=== PATIENT | female | born 1950 | race Caucasian/White ===

== ENCOUNTER 2020-03-01 17:46 | Emergency (ER) | payer MEDICARE, OTHER ==
[~2020-03-01] VITALS: Ht 170.2 cm; Wt 53.6 kg
[~2020-03-01 17:46] MED LIST: AMLO10TA4 PO; HYDR-2145 PO
--- NOTE | 2020-03-01 18:11 | PHYS DOC ---
Past History Past Medical History: Seizure (NADIA ANN APRN) Past Surgical History: Hip Replacement, Tubal ligation (NADIA ANN APRN) Alcohol Use: None (NADIA ANN APRN) General Adult EDM: Chief Complaint: HYPERTENSION HPI: HPI: Patient is a 69-year-old female who presents with high blood pressure. Home health was at the patient's house today they took her blood pressure and told her it was 193/101. Patient was instructed to come to the ER to be checked. Patient denies having a history of hypertension But admits she has not seen a primary care doctor in 7 years.Patient is asymptomatic. Patient denies shortness of breath, dizziness, chest pain. (NADIA ANN APRN) Review of Systems: Review of Systems: Constitutional: Denies fever or chills Eyes: Denies change in visual acuity HENT: Denies nasal congestion or sore throat Respiratory: Denies cough or shortness of breath Cardiovascular: Denies chest pain or edema GI: Denies abdominal pain, nausea, vomiting, bloody stools or diarrhea : Denies dysuria Musculoskeletal: Denies back pain or joint pain Integument: Denies rash Neurologic: Denies headache, focal weakness or sensory changes Endocrine: Denies polyuria or polydipsia Lymphatic: Denies swollen glands Psychiatric: Denies depression or anxiety (NADIA ANN APRN) Allergies: Allergies: Allergies Coded Allergies Type Severity Reaction Last Updated Verified chlorzoxazone Allergy Severe Shortness of Air 08/16/13 Yes influenza virus vaccine, specific Allergy Severe Swelling 08/16/13 Yes (NADIA ANN APRN) Physical Exam: PE: Constitutional: Well developed, well nourished, no acute distress, non-toxic appearance. [] HENT: Normocephalic, atraumatic, bilateral external ears normal, oropharynx moist, no oral exudates, nose normal. [] Eyes: PERRLA, EOMI, conjunctiva normal, no discharge. [] Neck: Normal range of motion, no tenderness, supple, no stridor. [] Cardiovascular:Heart rate regular rhythm, no murmur [] Lungs & Thorax: Bilateral breath sounds clear to auscultation [] Abdomen: Bowel sounds normal, soft, no tenderness, no masses, no pulsatile masses. [] Skin: Warm, dry, no erythema, no rash. [] Back: No tenderness, no CVA tenderness. [] Extremities: No tenderness, no cyanosis, no clubbing, ROM intact, no edema. [] Neurologic: Alert and oriented X 3, normal motor function, normal sensory function, no focal deficits noted. [] Psychologic: Affect normal, judgement normal, mood normal. [] (NADIA ANN APRN) Current Patient Data: Vital Signs: Vital Signs Date Time Temp Pulse Resp B/P (MAP) Pulse Ox O2 Delivery O2 Flow Rate FiO2 03/01/20 17:59 97.0 132 16 195/102 (133) 97 Room Air (NADIA ANN APRN) EKG: EKG: Sinus Tachycardia, HR 108 BPM[] (NADIA ANN APRN) Radiology/Procedures: Radiology/Procedures: [] (NADIA ANN APRN) Heart Score: HEART Score for Chest Pain: HEART Score for Chest Pain Response (Comments) Value History Slighlty/Non-Suspicious 0 ECG Normal 0 Age > 65 2 Risk Factors 1 or 2 Risk Factors 1 Troponin < Normal Limit 0 Total 3 Risk Factors: Risk Factors: DM, Current or recent (<one month) smoker, HTN, HLP, family history of CAD, obesity. Risk Scores: Score 0 - 3: 2.5% MACE over next 6 weeks - Discharge Home Score 4 - 6: 20.3% MACE over next 6 weeks - Admit for Clinical Observation Score 7 - 10: 72.7% MACE over next 6 weeks - Early Invasive Strategies (NADIA ANN APRN) Course & Med Decision Making: Course & Med Decision Making Pertinent Labs and Imaging studies reviewed. (See chart for details) [] C 9-year-old female presents with high blood pressure. Home health was visiting with the patient today when they took her blood pressure is it was 193/101. Patient was instructed to come to the ER. Patient is asymptomatic. We will order EKG, chest x-ray. EKG shows sinus tach, heart rate 108 bpm. Chest x-ray is negative. Labs are all within normal limits. Trop. is negative. Heart score is 3. Patients HR now 88BPM. Will repeat EKG. Repeat EKG- Normal Sinus Rhythm. 1 nitro was given. Patient's blood pressure is now 148/81. Patient is still asymptomatic. Will DC to home. Referral for PCP given to patient. Patient instructed to make an appointment and follow-up with PCP to evaluate blood pressure. (NADIA ANN APRN) Course & Med Decision Making I oversaw care of patient while in ER. I discussed case with DONOR RELATIONS OFFICER. Asymptomatic HTN. Patient improved with ER intervention. Has good access to care with PCP for follow-up for likely RX HTN med. (CAREN DIAZ DO) Johnathanon Disclaimer: Marlin Disclaimer: This electronic medical record was generated, in whole or in part, using a voice recognition dictation system. (NADIA ANN APRN) Departure Departure: Impression: Primary Impression: Hypertension Qualified Codes: I10 - Essential (primary) hypertension Disposition: DC HOME SELF CARE/HOMELESS Condition: IMPROVED Referrals: PCP,NO (PCP) Patient Instructions: Hypertension Additional Instructions: FOLLOW UP WITH PCP. PCP LIST WITH DISCHARGE PAPERWORK. EMERGENCY DEPARTMENT GENERAL DISCHARGE INSTRUCTIONS Thank you for coming to [facility] (ED) today and trusting us with you care. We trust that you had a positivie experience in our Emergency Department. If you wish to speak to the department management, you may call the director at [phone]. YOUR FOLLOW UP INSTRUCTIONS ARE FOLLOWS: 1. Do you have a private Doctor? If you do not have a private doctor, please ask for a resource list of physicians or clinics that may be able to assist you with fol low up care. 2. The Emergency Physician has interpreted your x-rays. The X-Ray specialist will also review them. If there is a change in the findings, you will be notified in 48 hours when at all possible. 3. A lab test or culture has been done, your results will be reviewed and you will be notified if you need a change in treatment. ADDITIONAL INSTRUCTIONS AND INFORMATION: 1. Your care today has been supervised by a physician who is specially trained in emergency care. Many problems require more than one evaluation for a complete diagnosis and treatment. We recommend that you schedule your follow up appointment as r ecommended to ensure complete treatment of you illness or injury. If you are unable to obtain follow up care and continue to have a problem, or if your condition worsens, we recommend that you return to the ED. 2. We are not able to safely determine your condition over the phone nor are we able to give sound medical advice over the phone. For these safety reasons, if you call for medical advice we will ask you to come to the ED for further evaluation. 3. If you have any questions regarding these discharge instructions please call the ED at [phone]. SAFETY INFORMATION: In the interest of safety, wellness, and injury prevention; we encourage you to wear your sealbelt, if you smoke; quite smoking, and we encourage family to use a protective helmet for bicycling and other sporting events that present an increased risk for head injury. IF YOUR SYMPTOMS WORSEN OR NEW SYMPTOMS DEVELOP, OR YOU HAVE CONCERNS ABOUT YOUR CONDITION; OR IF YOUR CONDITION WORSENS WHILE YOU ARE WAITING FOR YOUR FOLLOW UP APPOINTMENT; EITHER CONTACT YOUR PRIMARY CARE DOCTOR, THE PHYSICIAN WHOSE NAME AND NUMBER YOU WERE GIVEN, OR RETURN TO THE ED IMMEDIATELY. NADIA ANN APRN Mar 01, 2020 18:11 CAREN DIAZ DO Mar 06, 2020 21:16
[2020-03-01] MEDS ORDERED: NITROGLYCERIN SUBLINGUAL 0.4 MG BOTTLE OF 25. SL PRN (18:15)
--- NOTE | 2020-03-01 18:22 | EKG ---
[address] [address] Test Date: 2020-03-01 Test Time: 18:02:44 Pat Name: DERIAN BROOKS Department: Room: Gender: F Oral Communication Instructor: ADILIA : 1950 Requested By: NADIA ANN Order Number: [id number] Reading MD: Patrick Pelayo Measurements Intervals [place] Rate: 108 P: 77 IA: 126 QRS: 60 QRSD: 80 T: 68 QT: 334 QTc: 451 Interpretive Statements SINUS TACHYCARDIA QRS(T) CONTOUR ABNORMALITY CONSISTENT WITH ANTEROSEPTAL INFARCT PROBABLY OLD ABNORMAL ECG RI6.02 No previous ECG available for comparison Electronically Signed On 03-07-2020 14:52:47 AUGER OPERATOR by Patrick Pelayo
[2020-03-01 19:05] LABS: BASO % 1 % (0-3); EOS % 1 % (0-3); HEMATOCRIT 43.2 % (36.0-47.0); HEMOGLOBIN 14.3 g/dL (12.0-15.5); LYMPH # 1.1 x10^3/uL (1.0-4.8); LYMPH % 17 % (24-48); MEAN CORPUSCULAR HEMOGLOBIN 33 pg (25-35); MEAN CORPUSCULAR HGB CONC 33 g/dL (31-37); MEAN CORPUSCULAR VOLUME 99 fL (79-100); MONO # 0.5 x10^3/uL (0.0-1.1); MONO % 8 % (0-9); NEUT % 74 % (31-73); PLATELET COUNT 211 x10^3/uL (140-400); RED BLOOD COUNT 4.37 x10^6/uL (3.50-5.40); RED CELL DISTRIBUTION WIDTH 15.6 % (11.5-14.5); WHITE BLOOD COUNT 6.7 x10^3/uL (4.0-11.0)
[2020-03-01 19:11] LABS: CALCIUM 9.8 mg/dL (8.5-10.1); CREATININE 0.8 mg/dL (0.6-1.0); GFR 71.3; POTASSIUM 4.2 mmol/L (3.5-5.1)
[2020-03-01 19:21] LABS: ALBUMIN 3.8 g/dL (3.4-5.0); ALBUMIN/GLOBULIN RATIO 1.3 (1.0-1.7); TOTAL BILIRUBIN 0.5 mg/dL (0.2-1.0); TOTAL PROTEIN 6.8 g/dL (6.4-8.2)
[2020-03-01 19:38] VITALS: BP 149/71
--- NOTE | 2020-03-02 06:37 | EKG ---
[address] [address] Test Date: 2020-03-01 Test Time: 19:44:04 Pat Name: DERIAN BROOKS Department: Room: Gender: F Special Education Professor: ADILIA : 1950 Requested By: CAREN DIAZ Order Number: [id number] Reading MD: Patrick Pelayo Measurements Intervals [place] Rate: 89 P: 59 OR: 128 QRS: 24 QRSD: 70 T: 61 QT: 370 QTc: 451 Interpretive Statements SINUS RHYTHM QRS(T) CONTOUR ABNORMALITY CONSISTENT WITH ANTEROSEPTAL INFARCT AGE UNDETERMINED ABNORMAL ECG Electronically Signed On 03-07-2020 14:53:30 GROUP FITNESS INSTRUCTOR by Patrick Pelayo
== END 2020-03-01 20:14 | disposition home or self-care (01) ==
LOC: ER 17:46
DX: I10 Essential (primary) hypertension (principal); Z88.8 Allergy status to other drugs, medicaments and biological substances; Z88.7 Allergy status to serum and vaccine
CPT/HCPCS: 36415; 80053; 84484; 85025; 93005; 99284; 99285

== ENCOUNTER → 2020-03-10 | Outpatient (CLI) | payer MEDICARE, OTHER ==
[2020-03-01 19:38] VITALS: BP 149/71
--- NOTE | 2020-03-10 12:26 | RAD ---
EXAM: Right femur, 2 views; right humerus, 2 views. HISTORY: Fracture. COMPARISON: None. FINDINGS: Right femur: 2 views the right femur are obtained. There is internal fixation of a proximal femoral m etaphyseal fracture within intramedullary ascencion. There is slight callus formation along the fracture li ne. No new fracture is seen. There is suspected disuse osteopenia. Right humerus: 2 views of the right humerus are obtained. There is a mildly displaced fracture of the humeral head with involvement of the greater tuberosity. There may be minimal callus formation along the fracture line. IMPRESSION: 1. Healing proximal right femoral fracture status post internal fixation. 2. Minimal healing of a right humeral head fracture involving the greater tuberosity. Electronically signed by: Rachelle Thomas MD (03/10/2020 12:24 PM) [id number]
== END ==
LOC: DXRAD 11:52
PROVIDERS: ATTEND Physician Assistant
DX: S72.8X1A Other fracture of right femur, initial encounter for closed fracture (principal); Z98.890 Other specified postprocedural states; X58.XXXA Exposure to other specified factors, initial encounter; Y93.89 Activity, other specified; Y92.89 Other specified places as the place of occurrence of the external cause; Y99.8 Other external cause status
CPT/HCPCS: 73060; 73552

== ENCOUNTER → 2020-06-15 | Outpatient (CLI) | payer OTHER ==
--- NOTE | 2020-06-16 09:54 | RAD ---
EXAM: XR SHOULDER_RIGHT 2+ VIEWS 06/15/2020 2:57 PM CLINICAL INDICATION: Closed nondisplaced fracture greater tuberosity right humerus COMPARISON: Right humerus radiograph 03/10/2020 TECHNIQUE: 3 views of the right shoulder FINDINGS: The minimally displaced greater tuberosity fracture is unchanged in alignment. The fractur e line is slightly less conspicuous inferior medially but persists. No significant callus formation. There is no new fracture. Alignment is normal. Glenohumeral and acromioclavicular joints are maintain ed. IMPRESSION: Healing greater tuberosity fracture, unchanged alignment. Electronically signed by: Vikki Ren MD (06/16/2020 9:52 AM) [id number]
== END ==
LOC: RAD 14:50
PROVIDERS: ATTEND Physician Assistant
DX: S42.254D Nondisplaced fracture of greater tuberosity of right humerus, subsequent encounter for fracture with routine healing (principal); X58.XXXD Exposure to other specified factors, subsequent encounter
CPT/HCPCS: 73030

== ENCOUNTER → 2020-08-24 | Outpatient (CLI) | payer OTHER ==
--- NOTE | 2020-08-24 16:40 | RAD ---
Examination: 3 views of the right shoulder HISTORY: History of neck pain, right shoulder pain COMPARISON: 06/15/2020 Findings/ impression: Mild joint space loss identified in the glenohumeral joint, acromioclavicular joint. There is no acut e fracture or dislocation identified. Healed fracture of the greater tuberosity of the humerus. Electronically signed by: Jordin Orellana MD (08/24/2020 4:37 PM) [id number]
--- NOTE | 2020-08-24 17:31 | RAD ---
XR CERVICAL SPINE 2-3V Clinical Indication: Reason: NECK PAIN, RIGHT SHOULDER PAIN / Spl. Instructions: / History: Comparison: None. Findings: There is minimal grade 1 anterolisthesis of C3 on C4. There is mild grade 1 anterolisthesis of C4 on C5. There is minimal grade 1 anterolisthesis of C7 on T1. Alignment is otherwise maintained. There is mild disc space narrowing of C5/C6 and C6/C7. There is also degenerative endplate spurring at these levels. The other disc spaces are relatively maintained. The prevertebral soft tissues are normal. Th ere is fusion of the C3/C4 facet joints. There is multilevel uncinate process hypertrophy. The lung a pices are clear. The lateral masses of C1 are symmetric. The odontoid is intact. No acute fracture is identified. IMPRESSION: 1. Moderate degenerative spondylosis most advanced at C5/C6 and C6/C7. 2. The C3/C4 facet joints are fused. Electronically signed by: Rob Vera MD (08/24/2020 5:29 PM) DAINA
== END ==
LOC: RAD 15:13
PROVIDERS: ATTEND Physician Assistant
DX: M47.22 Other spondylosis with radiculopathy, cervical region (principal); M43.22 Fusion of spine, cervical region; M48.02 Spinal stenosis, cervical region; M43.12 Spondylolisthesis, cervical region; M25.811 Other specified joint disorders, right shoulder
CPT/HCPCS: 72040; 73030

== ENCOUNTER → 2020-10-12 | Outpatient (CLI) | payer MEDICARE, OTHER ==
--- NOTE | 2020-10-12 16:40 | RAD ---
EXAM: RIGHT SHOULDER 3 VIEWS. HISTORY: Fracture follow-up. COMPARISON: 08/24/2020. FINDINGS: A nondisplaced fracture along the posterior aspect of the greater tuberosity demonstrates p eriosteal reaction consistent with healing. Alignment is near-anatomic. Osteopenia is at least moderate. The glenohumeral joint space appears mildly narrowed. Glenohumeral a lignment is maintained. Acromioclavicular joint spaces and alignment are maintained for patient age. IMPRESSION: 1. Healing fracture of the right greater tuberosity in expected alignment. 2. Suspect mild right glenohumeral osteoarthritis. Electronically signed by: Anayeli Rizvi MD (10/12/2020 4:38 PM) [id number]
== END ==
LOC: RAD 14:40
PROVIDERS: ATTEND Physician Assistant
DX: S42.254D Nondisplaced fracture of greater tuberosity of right humerus, subsequent encounter for fracture with routine healing (principal); X58.XXXD Exposure to other specified factors, subsequent encounter
CPT/HCPCS: 73030